=== PATIENT | male | born 1970 | race Caucasian/White ===

== ENCOUNTER 2019-02-01 14:38 | Emergency (ER) | payer MEDICAID, OTHER ==
[~2019-02-01] VITALS: Ht 165.1 cm; Wt 73.0 kg
[2019-02-01] MEDS ORDERED: MORPHINE SULFATE 4 MG/ML CPJ (NOT FOR IM USE) IV STA (15:04)
[2019-02-01] MEDS ORDERED: SODIUM CHLORIDE 0.9% 1,000 ML IV ONE (15:04)
[2019-02-01] MEDS ORDERED: ONDANSETRON HCL 4MG/2ML INJ IV STA (15:04)
[2019-02-01] MEDS ORDERED: DIATR MEGLU/DIATRIZOATE SOLN 30ML ONE (15:12)
[2019-02-01] MEDS ORDERED: DIATR MEGLU/DIATRIZOATE SOLN 30ML PO ONE (15:15)
[2019-02-01 15:32] LABS: BASOPHILS % 0.6 % (0.0-2.0); EOSINOPHILS % 0.8 % (0.0-5.0); HEMATOCRIT. 41.6 % (42.0-52.0); HEMOGLOBIN. 14.5 g/dL (14.0-18.0); LYMPHOCYTES % 22.4 % (20.0-50.0); MEAN CORPUSCULAR HEMOGLOBIN 34.9 pg (28.0-32.0); MEAN CORPUSCULAR VOLUME 100.4 fL (80.0-94.0); MEAN PLATELET VOLUME 7.4 fl (7.4-10.4); MONOCYTES % 8.3 % (2.0-8.0); NEUTROPHILS % 67.9 % (40.0-76.0); PLATELET 190 x1000/uL (130-400); RED BLOOD CELL COUNT 4.14 mill/uL (4.7-6.1); RED CELL DISTRIBUTION WIDTH 13.3 % (11.6-14.6)
[2019-02-01 15:34] LABS: CHLORIDE 108 mEq/L (98-107)
[2019-02-01 15:37] LABS: PARTIAL THROMBOPLASTIN TIME 29.6 sec (23.4-31.0)
[2019-02-01 16:33] LABS: CLARITY URINE CLEAR (CLEAR); COLOR URINE YELLOW (YELLOW); KETONES URINE TRACE (NEGATIVE); LEUKOCYTE ESTERASE URINE NEGATIVE (NEGATIVE); NITRITE URINE NEGATIVE (NEGATIVE); OCCULT BLOOD URINE NEGATIVE (NEGATIVE); PH URINE 8.5 (4.5-8.0); PROTEIN URINE NEGATIVE (NEGATIVE); UROBILINOGEN URINE 0.2 E.U./dL (0.2-1.0)
[2019-02-01] MEDS ORDERED: MORPHINE SULFATE 4 MG/ML CPJ (NOT FOR IM USE) IV ONE (18:30)
[2019-02-01] MEDS ORDERED: IOHEXOL-300 100 ML BOTTLE ONE (19:41)
[2019-02-01 20:53] VITALS: BP 142/71
== END 2019-02-01 20:57 | disposition home or self-care (01) ==
LOC: ER 16:00
DX: K42.9 Umbilical hernia without obstruction or gangrene (principal); R11.10 Vomiting, unspecified; Z98.890 Other specified postprocedural states
CPT/HCPCS: 36415; 71045; 74177; 80053; 81003; 83690; 85025; 85610; 85730; 86850; 86900; 86901; 93005; 96361; 96374; 96375; 96376; 99284; J2270; J2405; J7030; Q9963; Q9967

== ENCOUNTER 2019-03-01 12:58 | Emergency (ER) | payer MEDICAID ==
[~2019-03-01] VITALS: Ht 175.3 cm; Wt 76.0 kg
[2019-03-01 13:02] VITALS: BP 170/93
== END 2019-03-01 21:23 | disposition left against medical advice (07) ==
LOC: ER 12:58
DX: R10.84 Generalized abdominal pain (principal); Z53.21 Procedure and treatment not carried out due to patient leaving prior to being seen by health care provider

== ENCOUNTER 2023-12-02 20:00 | Emergency (ER) | payer SELFPAY ==
[~2023-12-02] VITALS: Ht 175.3 cm; Wt 70.0 kg
[2023-12-02 20:05] VITALS: O2SAT 99
[2023-12-02] MEDS: KETOROLAC 15MG/ML VIAL IV ONE (21:33)
[2023-12-02] MEDS: TETANUS, DIPHTHERIA, PERTUSSIS VAC/PF 0.5ML (>10YR OLD) IM ONE (21:33)
[2023-12-02 21:34] VITALS: BP 130/60; PULSE 70; RESP 15; TEMP 98.8
[2023-12-02] MEDS: HYDROCODONE/ACETAMINOPHEN 5/325MG TABLET PO ONE (21:34)
== END 2023-12-02 21:50 | disposition home or self-care (01) ==
LOC: ER 20:00
DX: S01.01XA Laceration without foreign body of scalp, initial encounter (principal); Z98.890 Other specified postprocedural states; X58.XXXA Exposure to other specified factors, initial encounter; Y93.89 Activity, other specified; Y92.89 Other specified places as the place of occurrence of the external cause; Y99.8 Other external cause status
CPT/HCPCS: 70450; 72125; 90715; 12002; 90471; 96374; 99285; J1885; Z7610 ×4

== ENCOUNTER 2024-12-20 04:39 | Emergency (ER) | payer MEDICAID ==
[~2024-12-20] VITALS: Ht 167.6 cm; Wt 95.0 kg
[2024-12-20 04:43] VITALS: BP 134/76; PULSE 92; RESP 16; TEMP 37.1; O2SAT 98
== END 2024-12-20 08:11 | disposition left against medical advice (07) ==
LOC: ER 04:39
DX: M54.9 Dorsalgia, unspecified (principal); R51.9 Headache, unspecified; W18.30XA Fall on same level, unspecified, initial encounter; Y93.89 Activity, other specified; Y92.89 Other specified places as the place of occurrence of the external cause; Y99.8 Other external cause status
CPT/HCPCS: A4606